=== PATIENT | female | born 1985 | race Caucasian/White ===

== ENCOUNTER 2017-05-15 11:01 | Emergency (ER) | payer BC ==
[2017-05-15 11:11] VITALS: BP 128/83; PULSE 82; TEMP 98.4; BMI 24.1
--- NOTE | 2017-05-15 11:21 | PDOC ---
History of Present Illness - General Chief Complaint: Sore Throat Stated Complaint: THROAT SORENESS WEAKNESS LOW TEMP LAST NIGHT Time Seen by Provider: 05/15/17 11:04 History Source: Patient Exam Limitations: No Limitations - History of Present Illness Initial Comments: 05/15/17 11:17 The patient is a 32-year-old female with a history of "chronic fatigue" who presents to the emergency department complaining of approximately 1 month of worsening fatigue. Her symptoms began 4 weeks ago, when she developed a severe sore throat, fever, chills, productive cough. She saw her primary care physician , was diagnosed with streptococcal pharyngitis, and treated with 10 days of amoxicillin. Her symptoms persisted despite the amoxicillin. She was then prescribed azithromycin "Z-Robinson" for 5 days. The sore throat, fever and cough resolved, but the fatigue has persisted. Yesterday, it was slightly worse, so she is seeking treatment. She denies family history of thyroid disorders. She does have 6 months of irregular periods. She denies diarrhea/hyperdense defecation, constipation. She denies hair loss. She denies any changes in the moisture levels of her skin. She denies menorrhagia, hematuria, hematemesis, melena/hematochezia. She denies tick exposure, rash. Past History - Past Medical History Allergies/Adverse Reactions: Allergies Allergy/AdvReac Type Severity Reaction Status Date / Time No Known Allergies Allergy Verified 05/15/17 11:03 Other medical history: DENIES - Psycho/Social/Smoking Cessation Hx Anxiety: No Suicidal Ideation: No Smoking History: Never smoked Information on smoking cessation initiated: No Hx Alcohol Use: No Drug/Substance Use Hx: No Substance Use Type: None Review of Systems - Review of Systems Comments:: 05/15/17 11:19 CONSTITUTIONAL: Present: see HPI Absent: diaphoresis HEENT: Present: See HPI Absent: difficulty swallowing, mouth swelling, ear pain, eye pain, visual changes CARDIOVASCULAR: Absent: chest pain, loss of consciousness, palpitations, irregular heart rate, peripheral edema RESPIRATORY: Absent: shortness of breath, dyspnea with exertion, orthopnea, wheezing, stridor , hemoptysis GASTROINTESTINAL: Absent: abdominal pain, abdominal distension, nausea, vomiting, diarrhea, constipation, melena, hematochezia GENITOURINARY: Absent: dysuria, frequency, urgency, hesitancy, hematuria, flank pain, genital pain MUSCULOSKELETAL: Absent: myalgia, arthralgia, joint swelling SKIN: Absent: rash, itching, pallor HEMATOLOGIC/IMMUNOLOGIC: Absent: easy bleeding, easy bruising, lymphadenopathy, frequent infections ENDOCRINE: Absent: unexplained weight gain, unexplained weight loss, heat intolerance, cold intolerance NEUROLOGIC: Absent: headache, focal weakness or paresthesias, dizziness, unsteady gait, seizure, mental status changes, bladder or bowel incontinence PSYCHIATRIC: Absent: anxiety, depression, suicidal or homicidal ideation, hallucinations. *Physical Exam - Vital Signs Last Vital Signs Temp Pulse Resp BP Pulse Ox 98.4 F 82 16 128/83 98 05/15/17 11:03 05/15/17 11:03 05/15/17 11:03 05/15/17 11:03 05/15/17 11:03 - Physical Exam Comments: 05/15/17 11:20 GENERAL: Well developed, well nourished. Awake and alert. No acute distress. HEENT: Normocephalic, atraumatic. PERRLA, EOMI. No conjunctival pallor. Sclera are non- icteric. Moist mucous membranes. Oropharynx is clear. NECK: Supple. Full ROM. No JVD. Carotid pulses 2+ and symmetric, without bruits. No thyromegaly. No lymphadenopathy. CARDIOVASCULAR: Regular rate and rhythm. No murmurs, rubs, or gallops. Distal pulses are 2+ and symmetric. PULMONARY: No evidence of respiratory distress. Lungs clear to auscultation bilaterally. No wheezing, rales or rhonchi. ABDOMINAL: Soft. Non-tender. Non-distended. No rebound or guarding. No organomegaly. Normoactive bowel sounds. MUSCULOSKELETAL Normal range of motion at all joints. No bony deformities or tenderness. No CVA tenderness. EXTREMITIES: No cyanosis. No clubbing. No edema. No calf tenderness. SKIN: Warm and dry. Normal capillary refill. No rashes. No jaundice. NEUROLOGICAL: Alert, awake, appropriate. Cranial nerves 2-12 intact. No deficits to light touch and temperature in face, upper extremities and lower extremities. No motor deficits in the in face, upper extremities and lower extremities. Normoreflexic in the upper and lower extremities. Normal speech. Toes are down- going bilaterally. Gait is normal without ataxia. PSYCHIATRIC: Cooperative. Good eye contact. Appropriate mood and affect. ED Treatment Course - LABORATORY CBC & Chemistry Diagram: 05/15/17 11:24 05/15/17 11:24 Medical Decision Making - Medical Decision Making 05/15/17 11:20 The patient is well-appearing and in no acute distress She has no significant physical examination findings Will obtain basic labs 05/15/17 11:56 CBC and chemistries noted Urinalysis noted The patient does not want to wait for results of the TSH and mono screen She will call us and approximately 2 hours for results Clinical impression: Chronic fatigue, with acute exacerbation There is no evidence of acute/emergent pathology She understands the need to continue seeing her primary care physician for further evaluation I discussed the physical exam findings, ancillary test results and final diagnoses with the patient. I answered all of the patient's questions. The patient was satisfied with the care received and felt comfortable with the discharge plan and treatment plan. The patient will call their primary care physician within 24 hours to arrange follow-up and will return to the Emergency Department with any new, persistent or worsening symptoms. *DC/Admit/Observation/Transfer Diagnosis at time of Disposition: Fatigue - Discharge Dispostion Disposition: HOME Condition at time of disposition: Stable - Patient Instructions Printed Discharge Instructions: DI for Fatigue Additional Instructions: Return to the emergency department immediately with ANY new, persistent or worsening symptoms. You MUST call and follow up with your doctor tomorrow. Please make sure your doctor reviews the results of your emergency department evaluation. - Post Discharge Activity Work/School Note: Back to Work
[2017-05-15 11:29] LABS: EOSINOPHIL 1.7 % (0-4.5); MCH 27.8 pg (25.7-33.7); MCHC 33.5 g/dl (32.0-36.0); MEAN CELL VOLUME 82.9 fl (80-96); MEAN PLT VOLUME 8.9 fl (7.5-11.1); NEUTROPHILS 63.3 % (42.8-82.8); PLATELET COUNT 288 K/MM3 (134-434); RDW 12.6 % (11.6-15.6); WHITE BLOOD COUNT 6.9 K/mm3 (4.0-10.8)
[2017-05-15 11:38] LABS: PH,URINE 6.5 (4.5-8); URINE APPEARANCE Clear; URINE BILIRUBIN Negative (NEGATIVE); URINE GLUCOSE (UA) Negative (NEGATIVE); URINE KETONE Negative (NEGATIVE); URINE LEUK ESTERASE Trace (NEGATIVE); URINE NITRITE Negative (NEGATIVE); URINE PROTEIN Negative (NEGATIVE); URINE UROBILINOGEN 0.2 E.U/dl (0.2-1.0)
[2017-05-15 11:39] LABS: URINE BLOOD 1+ (NEGATIVE); URINE COLOR AMBER
[2017-05-15 11:48] LABS: ALBUMIN 4.2 g/dl (3.5-5.0); ALK PHOS 62 U/L (32-92); ANION GAP 9 (8-16); CALCIUM 9.7 mg/dl (8.4-10.2); CO2 27 mmol/L (22-28); CREATININE 0.6 mg/dl (0.6-1.3); GLUCOSE,RANDOM 74 mg/dl (74-106); SGOT/AST 19 U/L (10-42); SGPT/ALT 19 U/L (10-40)
[2017-05-15 21:49] LABS: THYROID STIMULATING HORMONE 1.21 uIU/ml (0.358-3.74)
== END 2017-05-15 12:19 | disposition home or self-care (01) ==
LOC: FER 11:01
DX: R53.83 Other fatigue (principal); R53.82 Chronic fatigue, unspecified
CPT/HCPCS: 36415; 80053; 81003; 84443; 84703; 85025; 86308; 99282-25

== ENCOUNTER 2018-05-14 18:51 | Emergency (ER) | payer BC ==
[2018-05-14 19:04] VITALS: BP 119/69; PULSE 88; TEMP 99.5; BMI 24.7
--- NOTE | 2018-05-14 19:31 | PDOC ---
History of Present Illness - General History Source: Patient Exam Limitations: No Limitations - History of Present Illness Initial Comments: 05/14/18 19:47 The patient is a 33 year old female with no significant PMH who presents to the emergency department with an insect bite on her right thigh that was noticed by someone else at approximately 10:30AM today. The patient states she is here today as she was concerned it may be a tick bite. The patient denies any pain or warmth to the area. The patient states there is brush in her backyard but denies seeing any ticks physically on her. The patient denies any history of lyme or tick-borne diseases. The patient is approximately 5 weeks , and declines any prophylactic medications at this time. The patient denies fever, chills, or body aches. Allergies: NKA Past surgical history: None reported. Social history: No reported alcohol, drug, or cigarette use. <Lissy Patel - Last Filed: 05/14/18 21:31> <Meghna Valdez - Last Filed: 05/15/18 05:53> - General Chief Complaint: Redness To Affected Area Stated Complaint: INSECT BITE Time Seen by Provider: 05/14/18 19:07 Past History <Lissy Patel - Last Filed: 05/14/18 21:31> - Past Medical History COPD: No - Suicide/Smoking/Psychosocial Hx Smoking History: Never smoked Hx Alcohol Use: No Drug/Substance Use Hx: No Substance Use Type: None <Meghna Valdez - Last Filed: 05/15/18 05:53> - Past Medical History Allergies/Adverse Reactions: Allergies Allergy/AdvReac Type Severity Reaction Status Date / Time No Known Allergies Allergy Verified 05/14/18 18:59 Home Medications: Ambulatory Orders NK [No Known Home Medication] 05/14/18 Review of Systems - Review of Systems Able to Perform ROS?: Yes Comments:: 05/14/18 20:20 All systems are reviewed and negative except as noted in the HPI <Lissy Patel - Last Filed: 05/14/18 21:31> *Physical Exam - Vital Signs Last Vital Signs Temp Pulse Resp BP Pulse Ox 99.5 F 88 15 119/69 100 05/14/18 18:59 05/14/18 18:59 06/16/18 18:59 05/14/18 18:59 05/14/18 18:59 - Physical Exam Comments: 05/14/18 19:51 GENERAL: Awake, alert, and fully oriented, in no acute distress HEAD: No signs of trauma EYES: PERRLA, EOMI, sclera anicteric, conjunctiva clear ENT: Auricles normal inspection, hearing grossly normal, nares patent, oropharynx clear without exudates. Moist mucosa NECK: Normal ROM, supple, no lymphadenopathy, JVD, or masses LUNGS: Breath sounds equal, clear to auscultation bilaterally. No wheezes, and no crackles HEART: Regular rate and rhythm, normal S1 and S2, no murmurs, rubs or gallops ABDOMEN: Soft, nontender, normoactive bowel sounds. No guarding, no rebound. No masses EXTREMITIES: Normal range of motion, no edema. No clubbing or cyanosis. No cords, erythema, or tenderness NEUROLOGICAL: Cranial nerves II through XII grossly intact. Normal speech, normal gait SKIN: Warm, Dry, normal turgor. (+) 2cm non blanching erythematous, flat, oval, area on the mid posterior right thigh. Faintly erythematous punctate wound centrally. There is a 1 cm border blanched border surrounding the erythematous region. Area is nontender, non fluctuant, non edematous. no lymphphangitic streaking. No discharge noted. <Lissy Patel - Last Filed: 05/14/18 21:31> - Vital Signs Last Vital Signs Temp Pulse Resp BP Pulse Ox 99.5 F 88 15 119/69 100 05/14/18 18:59 05/14/18 18:59 05/14/18 18:59 05/14/18 18:59 05/14/18 18:59 <Meghna Valdez - Last Filed: 05/15/18 05:53> Progress Note - Progress Note Progress Note: Documentation has been prepared under my direction and personally reviewed by me in its entirety. I attest that this documented accurately reflects all work, treatment, procedures and medical decision making performed by me. <Meghna Valdez - Last Filed: 05/15/18 05:53> Medical Decision Making - Medical Decision Making As noted above, this 33-year-old woman (first trimester ) presents with a small erythematous area on the posterior right thigh. There is a punctate area in the central region of this indicating that is likely an insect bite. It is neither pruritic or painful. She presents in case it is suggestive of tick exposure/Lyme disease. Exam as noted. Although the patient has brush in her backyard in an area that has deer, appearance of the rash is not at all suggestive of the ECM. Furthermore, since the patient is , doxycycline is contraindicated. Patient has been advised to continue observance of the small lesion and to return or see her doctor if it becomes more extensive, erythematous or if she develops any fever/ myalgias, etc. <Meghna Valdez - Last Filed: 05/15/18 05:53> *DC/Admit/Observation/Transfer - Attestations Scribe Attestion: 05/14/18 19:54 Documentation prepared by Lissy Patel, acting as medical concierge for Meghna Valdez MD. <Lissy Patel - Last Filed: 05/14/18 21:31> <Meghna Valdez - Last Filed: 05/15/18 05:53> Diagnosis at time of Disposition: Insect bite (nonvenomous), right thigh, initial encounter - Discharge Dispostion Disposition: HOME Condition at time of disposition: Stable - Referrals Referrals: Thomas Land MD [Primary Care Provider] - - Patient Instructions Printed Discharge Instructions: DI for Insect Bites and Stings Additional Instructions: return or see Dr Land if you develop fever/chills, body aches return if rash expands or you have worsening pain/increased warmth in area - Post Discharge Activity
== END 2018-05-14 19:51 | disposition home or self-care (01) ==
LOC: FER 18:51
DX: O26.891 Other specified pregnancy related conditions, first trimester (principal); S71.151A Open bite, right thigh, initial encounter; W57.XXXA Bitten or stung by nonvenomous insect and other nonvenomous arthropods, initial encounter; Y93.89 Activity, other specified; Y92.9 Unspecified place or not applicable; Z3A.01 Less than 8 weeks gestation of pregnancy
CPT/HCPCS: 99281-25

== ENCOUNTER 2019-01-03 13:03 | Inpatient (IN) | payer BC ==
[2019-01-03] MEDS ORDERED: DEXTROSE 5%-LACTATED RINGERS 1,000 ML IV SCH (14:00)
[2019-01-03] MEDS ORDERED: TUBERCULIN PPD 5 TU/0.1ML SYRINGE (IN PATIENT USE ONLY) ID ONE (15:45)
[2019-01-03 15:48] VITALS: BMI 34.9
[2019-01-03] MEDS ORDERED: AMPICILLIN - 2 GM in SODIUM CHLORIDE 100 ML IVPB ONE (16:00)
[2019-01-03] MEDS ORDERED: AMPICILLIN SODIUM 2 GM VIAL ONE (16:19)
[2019-01-03 16:25] LABS: BASO % 0.4 % (0-2.0); EOS % 0.5 % (0-4.5); HEMATOCRIT 33.6 % (32.4-45.2); HEMOGLOBIN 11.3 GM/dL (10.7-15.3); LYMPH % 12.4 % (8-40); MCH 26.1 pg (25.7-33.7); MCHC 33.5 g/dl (32.0-36.0); MEAN PLT VOLUME 9.6 fl (7.5-11.1); MONO % 8.3 % (3.8-10.2); NEUT % 78.4 % (42.8-82.8); PLATELET COUNT 186 K/MM3 (134-434); RBC 4.31 M/mm3 (3.60-5.2); RDW 17.8 % (11.6-15.6); WHITE BLOOD COUNT 11.7 K/mm3 (4.0-10.0)
[2019-01-03 16:37] LABS: INR 0.94 (0.83-1.09); PROTHROMBIN TIME (PATIENT) 11.1 SEC (9.7-13.0)
[2019-01-03 16:40] LABS: ACTIVATED PTT 26.2 SECONDS (25.2-36.5)
[2019-01-03 16:47] LABS: ANION GAP 11 MMOL/L (8-16); BLOOD UREA NITROGEN 8 mg/dL (7-18); CALCIUM 8.5 mg/dL (8.5-10.1); CHLORIDE 105 mmol/L (98-107); CO2 24 mmol/L (21-32); CREATININE 0.6 mg/dL (0.55-1.3); GLUCOSE,RANDOM 110 mg/dL (74-106); POTASSIUM 4.2 mmol/L (3.5-5.1); SODIUM 139 mmol/L (136-145)
[2019-01-03] MEDS ORDERED: PROMETHAZINE HCL 25 MG/1 ML VIAL IVPUSH ONE (19:28)
[2019-01-03] MEDS ORDERED: BUTORPHANOL TARTRATE 1 MG/ML VIAL IVPB ONE (19:28)
[2019-01-03] MEDS ORDERED: ELECTROLYTE-148 SOLN 1,000 ML IV SCH (19:30)
[2019-01-03] MEDS ORDERED: PROMETHAZINE HCL 25 MG/1 ML VIAL ONE (19:39)
[2019-01-03] MEDS ORDERED: BUTORPHANOL TARTRATE 1 MG/ML VIAL ONE ×2 (19:39)
--- NOTE | 2019-01-03 19:42 | HP ---
Past Medical History - Primary Care Physician PCP:: Chevy Delarosa - Admission Chief Complaint: 33yo P0 with at EGA 38w3d in spontaneous labor and mild preeclampsia. History of Present Illness: Pt was seen in office earlier today and noted to have elevated BP. She was referred to L&D for evaluation and was diagnosed with mild preeclampsia. However , the pt was also noted to be in spontaneous latent labor. complicated by: Current mild preeclampsia (+) Down Syndrome screen Elevated GCT with negative GTT Excessive maternal weight gain Vag GBS (+) History Source: Patient, Medical Record Limitations to Obtaining History: No Limitations - Past Medical History DOPE MIXER: No: Alzheimer's, CVA, Dementia, Migraine, Multiple Sclerosis, Peripheral Neuropathy, Parkinson's, Seizure, Syncope, TIA, Vertigo, Other Cardiovascular: No: AFIB, Aneurysm, Aortic Insufficiency, Aortic Stenosis, CAD, CHF, Deep Vein Thrombosis, HTN, Hyperlipdemia, AK, Mitral Insufficiency, Mitral Stenosis, Murmur, Pulmonary Hypertension, Other Pulmonary: No: Asthma, Bronchitis, Cancer, COPD, O2 Dependent, Pneumonia, Previously Intubated, Pulmonary Embolus, Pulmonary Fibrosis, Sleep Apnea, Other Gastrointestinal: No: Ascites, Cancer, Constipation, Crohn's Disease, Diverticulitis, Diverticulosis, Esophageal Varices, Gastritis, GERD, GI Bleed, Hemorrhoids, Hiatal Hernia, Inflamatory Bowel Disease, Irritable Bowel Disease, Pancreatitis, Peptic Ulcer Disease, Ulcerative Colitis, Other Hepatobiliary: No: Cirrhosis, Cholelithiasis, Cholecystitis, Choledocholithiasis , Hepatitis A, Hepatitis B, Hepatitis C, Other Renal/: No: Renal Failure, Renal Inusuff, BPH, Cancer, Hematuria, Hemodialysis , Neurogenic Bladder, Renal Calculi, UTI, Other ...: 2 ...Para: 0 ...Term: 0 ...: 0 ...Spon : 1 ...Induced : 0 ...Multiple Gestation: 0 ...LMP: 03/29/18 ... Weeks Gestation by Dates: 40.0 ...EDC by Dates: 01/03/19 ...EDC by Sono: 01/14/19 Heme/Onc: No: Anemia, B12 Deficiency, Bleeding Disorder, Cancer, Current Chemotherapy, Current Radiation Therapy, Hemochromatosis, Hypercoaguable State, Myeloproliferative Synd, Sickle Cell Disease, Sickle Cell Trait, Thrombocytopenia, Other Infectious Disease: No: AIDS, C-Diff, Herpes Zoster, HIV, MRSA, STD's, Tuberculosis, VREF, Other Psych: No: Addictions, Anxiety, Bipolar, Depression, Panic, Psychosis, Schizophrenia, Other Musculoskeletal: No: Bursitis, Chronic low back pain, Hemiparesis, Hemiplegia, Osteoarthritis, Paraplegia, Other Rheumatology: No: Fibromyalgia, Gout, Lupus, Rheumatoid Arthritis, Sarcoidosis, Vasculitis, Other ENT: No: Allergic Rhinitis, Sinusitis, Other Endocrine: No: Richmond's Disease, Tiff's Disease, Diabetes Insipidus, Diabetes Mellitus, Hyperparathyroidism, Hyperthyroidism, Hypothyroidism, Osteopenia, SIADH, Other Dermatology: No: Basal Cell, Cellulitis, Eczema, Melanoma, Psoriasis, Squamous Cell, Other - Past Surgical History Past Surgical History: Yes: None Hx Myomectomy: No Hx Transabdominal Cerclage: No Additional Surgical History: LASIK - Smoking History Smoking history: Never smoked Have you smoked in the past 12 months: No - Alcohol/Substance Use Hx Alcohol Use: No History of Substance Use: reports: None - Social History Usual Living Arrangement: Yes: With Spouse ADL: Independent Occupation: Teacher History of Recent Travel: No Home Medications - Allergies Allergies/Adverse Reactions: Allergies Allergy/AdvReac Type Severity Reaction Status Date / Time No Known Allergies Allergy Verified 01/03/19 13:45 - Home Medications Home Medications: Ambulatory Orders Pnv 112/Iron/Folic/Om3/Dha/Epa [Vitafol Gummies] 1 each PO DAILY 11/15/18 Family Disease History - Family Disease History Family Disease History: Heart Disease: Father (melanoma, CAD), CA: Father Review of Systems - Review of Systems Constitutional: reports: Other (Spontaneous painful contractions q2-4min) Eyes: reports: No Symptoms HENT: reports: No Symptoms Neck: reports: No Symptoms Cardiovascular: reports: No Symptoms Respiratory: reports: No Symptoms Gastrointestinal: reports: No Symptoms Genitourinary: reports: No Symptoms Breasts: reports: No Symptoms Reported Musculoskeletal: reports: No Symptoms Integumentary: reports: No Symptoms Neurological: reports: No Symptoms Endocrine: reports: No Symptoms Hematology/Lymphatic: reports: No Symptoms Psychiatric: reports: No Symptoms Pain Intensity: 7 Physical Exam - Maternity Vital Signs: Vital Signs Temperature 98.6 F 01/03/19 18:00 Pulse Rate 95 H 02/05/19 18:00 Respiratory Rate 18 01/03/19 18:00 Blood Pressure 144/91 01/03/19 18:00 O2 Sat by Pulse Oximetry (%) Constitutional: Yes: Well Nourished, No Distress, Calm Eyes: Yes: WNL, Conjunctiva Clear HENT: Yes: WNL, Atraumatic, Normocephalic Neck: Yes: WNL, Supple, Trachea Midline Cardiovascular: Yes: WNL, Regular Rate and Rhythm Lungs: Clear to auscultation, Normal air movement Breast(s): Yes: WNL - Abdominal Exam/OB Fundal Height: 39 Number of Fetuses: Single Presentation: Vertex Contractions: Yes Regularity: Irregular Intensity: Moderate Monitor Mode: External Heart Rate (range): 140 Heart Rate Location: Midline Category: I Accelerations: Non-Uniform Decelerations: None - Vaginal Exam/OB Vaginal Bleediing: No Speculum Exam: No Dilatation (cm): 2 Effacement (%): 80 Amniotic Membrane Status: Intact Presentation: Vertex/Position Station: -3 (Adequate gynecoid pelvimetry, EFW ~3700g by Ronen's maneuvers) - Physical Exam Musculoskeletal: Yes: WNL - Labs Lab Results: CBC, BMP 01/03/19 16:15 01/03/19 16:15 Hemorrhage Risk Assessment - Risk Factors Medium Risk Factors: Yes: None High Risk Factors: Yes: None Risk Score: 1 Risk Level: Medium Risk Imaging - Results Ultrasound: Report Reviewed Assessment/Plan 33yo P0 with at EGA 38w3d in spontaneous labor and mild preeclampsia. 1. Labor- spontaneous latent labor. Plan to monitor at this point and allow for labor to progress. 2. Fetus- Catgory I tracing. No intervention is required. 3. Preeclampsia- mild preeclampsia with BP 140's/90's. The pt is asymptomatic for any s/sx's of PEC. Plan to hold off on giving Mg Sulphate at this time. 4. Pain- Tx options d/w pt and she prefers to have IV sedation at this time. 5. Delivery- anticipate . We discussed the risks of shoulder dystocia, bleeding 6. Baby- with possible Down syndrome. The anatomy and cardiac echo were normal. I discussed this with Neonatology.
[2019-01-03] MEDS: AMPICILLIN - 1 GM in SODIUM CHLORIDE 100 ML IVPB SCH (20:00)
[2019-01-03] MEDS ORDERED: AMPICILLIN SODIUM 1 GM VIAL ONE (20:25)
[2019-01-03] MEDS ORDERED: FENTANYL/BUPIVACAINE/NS/PF - PCEA - 50 ML DISP.SYRIN EP ONE (23:21)
[2019-01-03] MEDS ORDERED: BUPIVACAINE HCL/PF 0.25% (2.5MG/ML) 10 ML VIAL ONE (23:23)
[2019-01-03] MEDS ORDERED: LIDO 2%/EPI 1:200000 PRESRVFRE (20 ML SDVIAL) ONE (23:23)
[2019-01-03] MEDS ORDERED: FENTANYL/BUPIVACAINE/NS/PF - PCEA - 50 ML DISP.SYRIN EP SCH (23:45)
[2019-01-03] MEDS ORDERED: NALOXONE HCL 0.4 MG/ML VIAL IVPUSH PRN (23:47)
[2019-01-04] MEDS: AMPICILLIN - 1 GM in SODIUM CHLORIDE 100 ML IVPB SCH ×5 (00:15→16:00)
[2019-01-04] MEDS ORDERED: AMPICILLIN SODIUM 1 GM VIAL ONE ×5 (00:17→15:58)
[2019-01-04] MEDS ORDERED: FENTANYL/BUPIVACAINE/NS/PF - PCEA - 50 ML DISP.SYRIN EP ONE ×4 (03:27→15:58)
--- NOTE | 2019-01-04 08:43 | PN ---
Ante-Partal Exam - Subjective Subjective: No complaints. Vital Signs: Vital Signs Temperature 97.4 F L 01/04/19 07:00 Pulse Rate 117 H 01/04/19 08:00 Respiratory Rate 18 01/04/19 08:00 Blood Pressure 146/92 01/04/19 08:00 O2 Sat by Pulse Oximetry (%) 97 01/04/19 08:00 Bleeding: No Headache: No Visual changes: No Right upper quadrant pain: No Pain (scale 1-10): 0 - Contractions Contractions: Yes Regularity: Regular (q2-3min) Intensity: Mod/Strong Monitor Mode: External - Exam during Labor Heart Rate: 140 Variability: Moderate Heart Rate Location: Midline Category: I Monitor Accelerations: Present Monitor Decelerations: None Exam: Vaginal Dilatation (cm): 9 Effacement (%): 100 Amniotic Membrane Status: Ruptured (AROM) Amniotic Fluid: Clear Presentation: Vertex Station: -2 Remarks: Adequate pelvimetry - Intrapartum Hemorrhage Risk Medium Risk Factors: None High Risk Factors: None Risk Score: 0 Risk Level: Low Risk - Assessment/Plan Assessment/Plan: 33yo P0 with at EGA 38w4d in spontaneous labor. 1. Labor progressing in active phase of labor 2. Fetus with Category I tracing and does not require intervention 3. Preeclampsia- BP in 140's/90's range c/w mild PEC. Pt is asymptomatic. Plan to hold off on Mg Sulphate at this time. 4. Pain is well controlled with epidural 5. GBS prphylaxis. 6. Fetus with likely Down Syndrome- d/w neonatology
[2019-01-04] MEDS ORDERED: BUPIVACAINE HCL/PF 0.25% (2.5MG/ML) 10 ML VIAL ONE ×3 (09:46→18:15)
--- NOTE | 2019-01-04 12:09 | PN ---
Ante-Partal Exam - Subjective Subjective: Patient reports increased pressure Vital Signs: Vital Signs Temperature 99.4 F 01/04/19 11:00 Pulse Rate 122 H 01/04/19 10:45 Respiratory Rate 18 01/04/19 11:00 Blood Pressure 152/111 H 01/04/19 11:00 O2 Sat by Pulse Oximetry (%) 98 01/04/19 11:00 Bleeding: No Headache: No Visual changes: No Right upper quadrant pain: No - Contractions Contractions: Yes Regularity: Regular Intensity: Mod/Strong Monitor Mode: External - Exam during Labor Heart Rate: 130 Variability: Moderate Category: I Monitor Accelerations: Absent Monitor Decelerations: None Exam: Vaginal Dilatation (cm): 9.5 Effacement (%): 100 Presentation: Vertex Station: +1 - Intrapartum Hemorrhage Risk Medium Risk Factors: None High Risk Factors: None Risk Score: 0 Risk Level: Low Risk - Assessment/Plan Assessment/Plan: 33 yo active labor 1. will await descent of head 2. moderate pain control with epidural 3. GBS neg 4. Will proceed with expectant management
[2019-01-04] MEDS ORDERED: OXYTOCIN 20 UNITS in 0.9% NS 20 UNIT/1,000 ML INFUS.BAG IV ONE (12:39)
[2019-01-04] MEDS ORDERED: LIDOCAINE HCL 1% PRESERVATIVE FREE - 30ML VIAL ONE (12:39)
[2019-01-04] MEDS ORDERED: OXYTOCIN 30 UNITS in 0.9% NS 30 UNIT/500 ML INFUS.BAG IVPB ONE (16:13)
[2019-01-04] MEDS ORDERED: OXYTOCIN 30 UNITS in 0.9% NS 30 UNIT/500 ML INFUS.BAG IVPB SCH (16:15)
--- NOTE | 2019-01-04 16:21 | PN ---
Ante-Partal Exam - Subjective Subjective: Pt has been pushing from 12:20pm to 2pm, then she rested until 3pm. She has been pushing from 3pm to now. The vtx has a small amount of caput and is at +1 station. The pt was offered a C/section but refused. We discussed the risks of operative delivery and shoulder dystocia vs risks of surgery. The pt refused a C/S and wants to push for another hour. The ctx's are now irregular and last <30sec. The pt requested pitocin. We discussed the risks and benefits of pitocin, uterine atony, uterine rupture. The pt refused a C/S again. Vital Signs: Vital Signs Temperature 98.8 F 01/04/19 15:00 Pulse Rate 123 H 01/04/19 12:00 Respiratory Rate 20 01/04/19 13:15 Blood Pressure 153/95 01/04/19 11:45 O2 Sat by Pulse Oximetry (%) 97 01/04/19 13:00 Bleeding: No Headache: No Visual changes: No Right upper quadrant pain: No Pain (scale 1-10): 8 - Contractions Contractions: Yes Regularity: Irregular Intensity: Mild Monitor Mode: External - Exam during Labor Heart Rate: 140 Variability: Moderate Heart Rate Location: Midline Category: I Monitor Accelerations: Present Monitor Decelerations: Early Exam: Vaginal Dilatation (cm): 10 Effacement (%): 100 Amniotic Membrane Status: Leaking Presentation: Vertex Station: +1 - Intrapartum Hemorrhage Risk Medium Risk Factors: Prolonged Second Stage High Risk Factors: None Risk Score: 1 Risk Level: Medium Risk - Assessment/Plan Assessment/Plan: pt with spont labor, progressed to second stage. She has a prolonged second stage with epidural in place. I explained the risks of continued pushing, uterine atony, shoulder dystocia, injury, etc. The pt plans to push until 5pm.
[2019-01-04] MEDS ORDERED: CITRIC ACID/SODIUM CITRATE 30 ML UNIT-DOSE CUP PO ONE (16:44)
[2019-01-04] MEDS ORDERED: ceFAZolin SODIUM 1 GM VIAL ONE (17:22)
[2019-01-04] MEDS ORDERED: OXYTOCIN 10 UNITS/ML VIAL ONE ×2 (17:45→18:43)
[2019-01-04 18:21] LABS: ARTERIAL BLOOD GAS BASE EXCESS -1.5 meq/l (-2-2); ARTERIAL BLOOD GAS PCO2 49.4 mmHg (35-45); ARTERIAL BLOOD GAS pH 7.32 (7.35-7.45)
[2019-01-04 18:25] LABS: ARTERIAL BLD GAS O2 SATURATION 22.1 % (90-98.9); ARTERIAL BLOOD GAS PO2 15.9 mmHg (80-100)
[2019-01-04 18:26] LABS: VENOUS PH 7.36 (7.32-7.42); VENOUS PO2 25.7 mmHg (28-48)
[2019-01-04] MEDS ORDERED: KETAMINE HCL 500 MG/10 ML VIAL ONE (18:31)
[2019-01-04] MEDS ORDERED: MIDAZOLAM HCL 2 MG/2 ML SINGLE DOSE VIAL ONE (18:31)
[2019-01-04] MEDS ORDERED: IBUPROFEN 600 MG TABLET (FP) PO PRN (18:50)
[2019-01-04] MEDS ORDERED: oxyCODONE HCL 5 MG TABLET PO PRN ×2 (18:50)
[2019-01-04] MEDS ORDERED: METHYLERGONOVINE MALEATE 0.2 MG/1 ML AMP IM PRN (18:50)
[2019-01-04] MEDS ORDERED: METOPROLOL TARTRATE 5 MG/5 ML VIAL ONE (18:54)
[2019-01-04] MEDS ORDERED: OXYTOCIN 20 UNITS in 0.9% NS 20 UNIT/1,000 ML INFUS.BAG IV SCH (19:00)
[2019-01-04] MEDS ORDERED: ONDANSETRON 4 MG/2 ML VIAL IVPUSH PRN (19:16)
--- NOTE | 2019-01-04 19:20 | OP ---
Operative Note - Note: Operative Date: 01/04/19 Pre-Operative Diagnosis: at EGA 38w4d. Mild preeclampsia. Arrest of descent Operation: Primary LT C/S Findings: 1. Live baby girl in vtx presentation with deep arrest of descent in OP presentation 2. No meconium 3. Normal uterus, ovaries and tubes 4. No evidence of bicornuate uterus Post-Operative Diagnosis: Same as Pre-op Surgeon: Chevy Delarosa Water Main Inspector: Santa Lopez (\) Anesthesiologist/BICYCLE REPAIRMAN: Denisha Herzog Anesthesia: Epidural Specimens Removed: Placenta Estimated Blood Loss (mls): 1,000 Drains & Tubes with Location: Lozano cath Drains, Volume Out (mls): 175 Blood Volume Replaced (mls): 0 Fluid Volume Replaced (mls): 2,000 Operative Report Dictated: Yes
--- NOTE | 2019-01-04 21:14 | OP ---
DATE OF OPERATION: 01/04/2019 PREOPERATIVE DIAGNOSES: , estimated gestational age of 38 weeks 4 days, mild preeclampsia, arrest of descent. POSTOPERATIVE DIAGNOSES: , estimated gestational age of 38 weeks 4 days, mild preeclampsia, arrest of descent. PROCEDURE: Primary low-transverse section via Pfannenstiel skin incision. SURGEON: Chevy Delarosa MD ASSISTANT GOLF COURSE SUPERINTENDENT: Santa Lopez MD ANESTHESIOLOGIST: Denisha Herzog MD ANESTHESIA: Epidural. COMPLICATIONS: None. IV FLUIDS: 2000 mL. URINE OUTPUT: 175 mL. ESTIMATED BLOOD LOSS: 1000 mL. COMPLICATIONS: None. PATHOLOGY: Placenta. FINDINGS: Live baby girl in vertex presentation with deep pelvic arrest of descent, on occiput posterior presentation. Normal uterus, ovaries, and fallopian tubes. No evidence of bicornuate uterus was noted. There were large varicosities noted around both ovaries and in the broad ligament bilaterally. No meconium was noted in the amniotic fluid. Baby's Apgars were 9 and 9. PROCEDURE: The patient was met preoperatively. Risks, benefits, and alternatives of surgery were discussed in detail. All questions were answered. The patient was then brought to the OR. She was placed on a surgical table in the supine position with a leftward tilt. The epidural anesthesia was bolused and the level was found to be adequate. The patient was then prepped and draped in the usual sterile fashion. A Lozano catheter was left to drain to gravity. A timeout procedure was conducted as per standard protocol. A Pfannenstiel skin incision was made with the knife approximately 2 cm above the pubic symphysis. The incision was carried down to the level of fascia. The fascia was incised in the midline. The incision was extended bilaterally with De Los Santos scissors. The fascia was dissected away from the rectus muscles superiorly and inferiorly. The rectus muscles were in the midline using blunt dissection. The peritoneum was identified and entered sharply. The peritoneal incision was then extended superiorly and inferiorly using Metzenbaum scissors. The bladder peritoneum was then dissected away from the lower uterine segment. The bladder was reflected downwards with a Madelia retractor. The uterus was incised in the lower uterine transversely. The incision was extended bilaterally using bandage scissors. The baby was found to be very deep in the pelvis and in occiput posterior presentation. There was no meconium in the amniotic fluid. The baby was delivered from vertex presentation without complications. The baby's nose and mouth were suctioned and the baby was crying spontaneously. The umbilical cord was clamped and cut. The baby was handed to the awaiting director of audiology. The placenta was then removed manually and without complications. The placenta was sent to Pathology. A segment of the umbilical cord was then sent for umbilical cord gas. A lower uterine segment laceration was noted to be on the patient's right side. The uterus was then exteriorized. The lower uterine segment was identified and traced to the apex. There were multiple very large varicose veins noted bilaterally along the broad ligament and extending all the way up to both ovaries. The varicose veins were also surrounding both ovaries and were very engorged. While maintaining traction and good visualization, the lower uterine segment was repaired using a 2-0 Biosyn suture with running locking stitch. Good hemostasis was achieved. Following that, the uterine incision was repaired using a 0 Biosyn suture with a running locking stitch. Good hemostasis was noted. Afterwards, the uterine incision was imbricated using a 0 Biosyn suture with a running stitch. Good hemostasis was noted. The bladder peritoneum was then reapproximated using a 2-0 chromic suture. Once again, good hemostasis was confirmed. The operative field was irrigated using copious amounts of normal saline. Once the saline was aspirated, good hemostasis was noted. The abdominal peritoneum was then closed using a 2-0 chromic suture. The rectus muscles were approximated using several interrupted 2-0 chromic sutures. The fascia was closed using a 0 Vicryl suture with a running stitch. Good hemostasis and approximation were noted. The subcutaneous adipose tissues and Joaquin's fascia were approximated using several interrupted 2-0 chromic sutures. The skin was closed using a 3-0 Vicryl suture with a subcutaneous stitch. Sponge, lap, and instrument counts were correct. The patient was then transferred to recovery room awake and in stable condition. Geovani [id number]
[2019-01-04] MEDS: FERROUS SO4 325 MG TABLET (FP) PO SCH (22:27)
[2019-01-04] MEDS: IBUPROFEN 800 MG/8 ML IJ IVPB PRN (23:11)
[2019-01-05] MEDS: CEFAZOLIN 2 GM/D5W 2 GM/50 ML ML IVPB SCH ×3 (01:42→17:28)
[2019-01-05] MEDS ORDERED: ceFAZolin 2 GRAM PREMIX BAG IVPB SCH (02:00)
--- NOTE | 2019-01-05 06:26 | PN ---
Post Progress Note - Subjective Subjective: Patient without acute complaints. Tolerating clears, without nausea or vomiting No voiding, spaulding in place draining clear fluid No ambulation or flatus yet. Denies fevers or chills. Pain well controlled. Post Day: 1 Type of Delivery: Primary C/S Vital Signs: Vital Signs Temperature 98.6 F 01/05/19 02:00 Pulse Rate 115 H 01/05/19 02:00 Respiratory Rate 20 01/05/19 05:00 Blood Pressure 114/67 01/05/19 02:00 O2 Sat by Pulse Oximetry (%) 99 01/04/19 20:30 Uterus: Yes: Fundus Firm, Fundus below umbilicus Incision: Yes: Dressing dry and intact Abdomen/GI: Yes: Abdomen soft, Tender. No: Passing flatus, Tolerating PO Lochia: Yes: Serosa Lochia, amount: Moderate Extremities: Yes: Calves non-tender, Edema (+1 ) Activity: Ambulating - Labs Labs: CBC WBC 11.7 K/mm3 (4.0-10.0) H 01/03/19 16:15 RBC 4.31 M/mm3 (3.60-5.2) 01/03/19 16:15 Hgb 11.3 GM/dL (10.7-15.3) 01/03/19 16:15 Hct 33.6 % (32.4-45.2) 01/03/19 16:15 MCV 78.0 fl (80-96) L 01/03/19 16:15 MCH 26.1 pg (25.7-33.7) 01/03/19 16:15 MCHC 33.5 g/dl (32.0-36.0) 01/03/19 16:15 RDW 17.8 % (11.6-15.6) H 01/03/19 16:15 Plt Count 186 K/MM3 (134-434) 01/03/19 16:15 MPV 9.6 fl (7.5-11.1) 01/03/19 16:15 Absolute Neuts (auto) 9.1 K/mm3 (1.5-8.0) H 01/03/19 16:15 Neutrophils % 78.4 % (42.8-82.8) 01/03/19 16:15 Lymphocytes % 12.4 % (8-40) 01/03/19 16:15 Monocytes % 8.3 % (3.8-10.2) 01/03/19 16:15 Eosinophils % 0.5 % (0-4.5) 01/03/19 16:15 Basophils % 0.4 % (0-2.0) 01/03/19 16:15 Nucleated RBC % 0 % (0-0) 01/03/19 16:15 Assessment/Plan 33 yo POD # 1 s/p 1 CD, afebrile, vital signs stable, doing well 1. Continue routine postoperative care. 2. Follow up AM CBC 3. Rh positive status, no rhogam indicated. 4. Encourage ambulation and incentive spirometer use 5. Continue oral pain medication 6. Will DC jasson later today and await void 7. Anticipate discharge home postoperative day #3 or #4
[2019-01-05 09:13] LABS: BASO % 0.1 % (0-2.0); EOS % 0.1 % (0-4.5); HEMATOCRIT 27.8 % (32.4-45.2); HEMOGLOBIN 9.2 GM/dL (10.7-15.3); LYMPH % 6.7 % (8-40); MCH 25.8 pg (25.7-33.7); MCHC 33.2 g/dl (32.0-36.0); MEAN CELL VOLUME 77.6 fl (80-96); MONO % 4.4 % (3.8-10.2); NEUT % 88.7 % (42.8-82.8); PLATELET COUNT 178 K/MM3 (134-434); RBC 3.58 M/mm3 (3.60-5.2); RDW 17.7 % (11.6-15.6); WHITE BLOOD COUNT 19.7 K/mm3 (4.0-10.0)
[2019-01-05] MEDS: PRENATAL VITAMINS W/ FOLIC ACID TABLET (FP) PO SCH (09:34)
[2019-01-05] MEDS: FERROUS SO4 325 MG TABLET (FP) PO SCH ×2 (09:34→22:15)
[2019-01-05] MEDS: ENOXAPARIN NA (PORCINE) 40 MG/0.4 ML DISP.SYRIN SQ SCH (10:14)
[2019-01-05] MEDS: IBUPROFEN 800 MG/8 ML IJ IVPB PRN (10:54)
--- NOTE | 2019-01-05 13:25 | PN ---
Progress Note (short form) - Note Progress Note: POD #1 - s/p under spinal anesthesia with duramorph. VSS. Pt. doing well. No complaints. Good pain control. No apparent anesthetic complications noted. Continue current care.
[2019-01-05] MEDS ORDERED: BISACODYL 10 MG SUPP.RECT RC PRN (18:50)
[2019-01-05] MEDS: ACETAMINOPHEN 650 MG/20.3 ML ORAL SOLUTION (CUPS) PO PRN (22:01)
[2019-01-05] MEDS: IBUPROFEN 100 MG/5 ML UNIT DOSE CUPS PO PRN (22:02)
[2019-01-06] MEDS: SIMETHICONE 80 MG TAB.CHEW (FP) PO PRN ×3 (02:27→16:06)
[2019-01-06] MEDS: ACETAMINOPHEN 650 MG/20.3 ML ORAL SOLUTION (CUPS) PO PRN ×2 (02:28→16:04)
[2019-01-06] MEDS: IBUPROFEN 100 MG/5 ML UNIT DOSE CUPS PO PRN ×3 (02:28→17:49)
--- NOTE | 2019-01-06 06:52 | PN ---
Progress Note (short form) - Note Progress Note: pod 2 doing well, no c/o CBC, BMP 01/05/19 08:00 01/03/19 16:15 Last Vital Signs Temp Pulse Resp BP Pulse Ox 98.0 F 96 H 18 119/76 98 01/06/19 02:00 01/06/19 02:00 01/06/19 02:00 01/06/19 02:00 01/05/19 06:52 abdomen soft, no distension, no cva incision dry, clean no calf tenderness lochia mild plan ambulate, cbc in am
[2019-01-06] MEDS ORDERED: DIPHTH,PERTUSS(ACELL),TET 0.5 ML DISP.SYRIN IM ONE (10:00)
[2019-01-06] MEDS: ENOXAPARIN NA (PORCINE) 40 MG/0.4 ML DISP.SYRIN SQ SCH (10:08)
[2019-01-06] MEDS: FERROUS SO4 325 MG TABLET (FP) PO SCH ×2 (10:09→21:09)
[2019-01-06] MEDS: ACETAMINOPHEN 325 MG TABLET (FP) PO PRN (10:09)
[2019-01-06] MEDS: PRENATAL VITAMINS W/ FOLIC ACID TABLET (FP) PO SCH (10:42)
--- NOTE | 2019-01-07 01:44 | PN ---
Post Progress Note - Subjective Subjective: Patient without acute complaints. Reports tolerating oral intake without nausea or vomiting. Ambulating without dizziness. Denies fevers or chills. Pain well controlled with oral pain medication. No , but pumping colostrum Passing flatus. Post Day: 3 Type of Delivery: Primary C/S Vital Signs: Vital Signs Temperature 98.5 F 01/06/19 21:57 Pulse Rate 87 01/06/19 21:57 Respiratory Rate 18 01/06/19 21:57 Blood Pressure 123/81 01/06/19 21:57 O2 Sat by Pulse Oximetry (%) 98 01/05/19 06:52 Breast Exam: Yes: Soft Uterus: Yes: Fundus Firm, Fundus below umbilicus Incision: Yes: Sutures intact. No: Redness, Oozing Abdomen/GI: Yes: Abdomen soft, Tender (mild incisional), Passing flatus, Tolerating PO. No: Abdominal Distention Lochia: Yes: Serosa Lochia, amount: Small Extremities: Yes: Calves non-tender, Edema (+1) Activity: Ambulating - Labs Labs: CBC WBC 19.7 K/mm3 (4.0-10.0) H 01/05/19 08:00 RBC 3.58 M/mm3 (3.60-5.2) L 01/05/19 08:00 Hgb 9.2 GM/dL (10.7-15.3) L 01/05/19 08:00 Hct 27.8 % (32.4-45.2) L D 01/05/19 08:00 MCV 77.6 fl (80-96) L 01/05/19 08:00 MCH 25.8 pg (25.7-33.7) 01/05/19 08:00 MCHC 33.2 g/dl (32.0-36.0) 01/05/19 08:00 RDW 17.7 % (11.6-15.6) H 01/05/19 08:00 Plt Count 178 K/MM3 (134-434) 01/05/19 08:00 MPV 9.0 fl (7.5-11.1) 01/05/19 08:00 Absolute Neuts (auto) 17.4 K/mm3 (1.5-8.0) H 01/05/19 08:00 Neutrophils % 88.7 % (42.8-82.8) H 01/05/19 08:00 Lymphocytes % 6.7 % (8-40) L D 01/05/19 08:00 Monocytes % 4.4 % (3.8-10.2) 01/05/19 08:00 Eosinophils % 0.1 % (0-4.5) 01/05/19 08:00 Basophils % 0.1 % (0-2.0) 01/05/19 08:00 Nucleated RBC % 0 % (0-0) 01/05/19 08:00 Assessment/Plan 33 yo POD # 3 s/p 1 CD, afebrile, vital signs stable, doing well 1. Continue routine postoperative care. 2. Encourage ambulation and incentive spirometer use 3. Continue oral pain medication 4. Anticipate discharge home postoperative day #4
[2019-01-07] MEDS: ACETAMINOPHEN 650 MG/20.3 ML ORAL SOLUTION (CUPS) PO PRN ×3 (02:09→22:35)
[2019-01-07] MEDS: IBUPROFEN 100 MG/5 ML UNIT DOSE CUPS PO PRN ×4 (02:10→22:40)
[2019-01-07] MEDS: SIMETHICONE 80 MG TAB.CHEW (FP) PO PRN ×2 (08:45→17:16)
[2019-01-07] MEDS: ACETAMINOPHEN 325 MG TABLET (FP) PO PRN (08:48)
[2019-01-07 08:58] LABS: BASO % 0.2 % (0-2.0); EOS % 2.7 % (0-4.5); HEMATOCRIT 26.3 % (32.4-45.2); HEMOGLOBIN 8.7 GM/dL (10.7-15.3); MCH 25.5 pg (25.7-33.7); MCHC 32.9 g/dl (32.0-36.0); MEAN CELL VOLUME 77.4 fl (80-96); MEAN PLT VOLUME 8.6 fl (7.5-11.1); MONO % 4.6 % (3.8-10.2); NEUT % 79.5 % (42.8-82.8); PLATELET COUNT 222 K/MM3 (134-434); RDW 18.3 % (11.6-15.6); WHITE BLOOD COUNT 13.6 K/mm3 (4.0-10.0)
[2019-01-07] MEDS: FERROUS SO4 325 MG TABLET (FP) PO SCH ×2 (10:29→21:22)
[2019-01-07] MEDS: ENOXAPARIN NA (PORCINE) 40 MG/0.4 ML DISP.SYRIN SQ SCH (10:29)
[2019-01-07] MEDS: PRENATAL VITAMINS W/ FOLIC ACID TABLET (FP) PO SCH (10:29)
[2019-01-07] MEDS ORDERED: SENNOSIDES/DOCUSATE COMBO (SENNA PLUS) TABLET (UD) PO PRN (22:00)
--- NOTE | 2019-01-07 22:26 | DS ---
Physical Exam-PECAN CLEANER Vital Signs: Vital Signs Temperature 98.5 F 01/07/19 10:00 Pulse Rate 87 01/07/19 10:00 Respiratory Rate 20 01/07/19 10:00 Blood Pressure 131/84 01/07/19 10:00 O2 Sat by Pulse Oximetry (%) 98 01/05/19 06:52 Labs: CBC, BMP 01/07/19 08:00 01/03/19 16:15 Delivery - Delivery Type of Anesthesia: Epidural Episiotomy/Laceration: None EBL (cc): 1,000 Delivery, Single - Stages of Labor Date 1st Stage Initiatied: 01/03/19 Time 1st Stage Initiated: 06:00 Date 2nd Stage Initiated: 01/04/19 Time 2nd Stage Initiated: 12:30 Date of Delivery: 01/04/19 Time of Delivery: 17:47 Time Placenta Delivered: 17:48 - Condition of Claims Adjuster/Asset Availability Leader Present: Yes Name: Luis Hastings Gender: Female Weight: 7 lb 3 oz Position: OP Total Hours ROM (Hrs/Mins): 9hrs/30mins - 1 Minute Total Score: 9 5 Minutes Total Score: 9 - Feeding Plan Initial Plan: Exclusive throughout hospitalization Discharge Summary Reason For Visit: INDUCTION OF LABOR Current Active Problems delivery delivered (Acute) Procedures: Principal: delivery Other Procedures: induction of labor Hospital Course: Patient was admitted for induction of labor She progressed to fully dilated and delivery was performed for failure to descend. POD # 1 patient ambulated, voiding, passing gas, tolerating oral intake and with adequate pain control. Noted to have mild asymptomatic anemia She fulfilled all criteria for discharge home Condition: Good - Instructions Diet, Activity, Other Instructions: Physical activity Resume your normal everyday activity as tolerated no heavy lifting or exercise until seen by your surgeon. You may walk unlimited nallely of and climb stairs. You may resume driving the car when you feel safe and comfortable behind the wheel. No sexual activity as instructed. Wound care If you have a bandage, leave it on, and keep dry for 48-72 hours. After that time discard the outer bandage. If they are tapes on the skin under the out of bandage leave them in place. They will peel off in the next 7 to 10 days. Do Not Peel them off. You may shower the day after surgery. If there are tapes present on the skin, you may shower over them. Diet There are no dietary restrictions. Eat healthy, high-fiber foods. Drink 6 to 8 glasses of liquid each day. This will assist in keeping your bowels are regular. Pain management You may take Tylenol or acetaminophen or Ibuprofen (for example, Motrin, Advil etc.) from my pain prescription medication is ordered should be taken as prescribed for moderate to severe pain. Call MD for any of the following: Severe pain not relieved by medication Fever of 101 or higher Excessive bleeding or drainage on dressing Inability to urinate Referrals: Chevy Delarosa MD [Staff Physician] - Disposition: HOME - Home Medications Comprehensive Discharge Medication List: Ambulatory Orders Pnv 112/Iron/Folic/Om3/Dha/Epa [Vitafol Gummies] 1 each PO DAILY 11/15/18
--- NOTE | 2019-01-08 06:56 | PN ---
Post Progress Note - Subjective Subjective: Patient without acute complaints. Reports tolerating oral intake without nausea or vomiting. Ambulating without dizziness. Denies fevers or chills. Pain well controlled with oral pain medication. without difficulty. Passing flatus. Post Day: 4 Type of Delivery: Primary C/S Vital Signs: Vital Signs Temperature 98.2 F 01/07/19 22:00 Pulse Rate 89 01/07/19 22:00 Respiratory Rate 18 01/07/19 22:00 Blood Pressure 123/75 01/07/19 22:00 O2 Sat by Pulse Oximetry (%) 98 01/05/19 06:52 Uterus: Yes: Fundus Firm, Fundus below umbilicus Incision: Yes: Dressing dry and intact Abdomen/GI: Yes: Abdomen soft, Tender (mild incisional), Passing flatus, Tolerating PO. No: Abdominal Distention Lochia: Yes: Serosa Lochia, amount: Small Extremities: Yes: Calves non-tender, Edema (+1) Activity: Ambulating - Labs Labs: CBC WBC 13.6 K/mm3 (4.0-10.0) H 01/07/19 08:00 RBC 3.40 M/mm3 (3.60-5.2) L 01/07/19 08:00 Hgb 8.7 GM/dL (10.7-15.3) L 01/07/19 08:00 Hct 26.3 % (32.4-45.2) L 01/07/19 08:00 MCV 77.4 fl (80-96) L 01/07/19 08:00 MCH 25.5 pg (25.7-33.7) L 01/07/19 08:00 MCHC 32.9 g/dl (32.0-36.0) 01/07/19 08:00 RDW 18.3 % (11.6-15.6) H 01/07/19 08:00 Plt Count 222 K/MM3 (134-434) D 01/07/19 08:00 MPV 8.6 fl (7.5-11.1) 01/07/19 08:00 Absolute Neuts (auto) 10.8 K/mm3 (1.5-8.0) H 01/07/19 08:00 Neutrophils % 79.5 % (42.8-82.8) 01/07/19 08:00 Lymphocytes % 13.0 % (8-40) D 01/07/19 08:00 Monocytes % 4.6 % (3.8-10.2) 01/07/19 08:00 Eosinophils % 2.7 % (0-4.5) D 01/07/19 08:00 Basophils % 0.2 % (0-2.0) 01/07/19 08:00 Nucleated RBC % 0 % (0-0) 01/07/19 08:00 Assessment/Plan 33 yo POD # 4 s/p 1 CD, afebrile, vital signs stable, doing well 1. Patient stable for discharge home today. 2. Patient encouraged to contact MD for: - Severe pain not controlled by oral pain medication - Fevers or chills - Nausea or vomiting, intolerance of oral intake - Incision redness, tenderness or discharge 3. Patient to follow up in office in 1-2 weeks for incision check, 4-6 weeks for visit
[2019-01-08] MEDS: ACETAMINOPHEN 650 MG/20.3 ML ORAL SOLUTION (CUPS) PO PRN (08:23)
[2019-01-08] MEDS: IBUPROFEN 100 MG/5 ML UNIT DOSE CUPS PO PRN (08:44)
[2019-01-08] MEDS: FERROUS SO4 325 MG TABLET (FP) PO SCH (10:03)
[2019-01-08] MEDS: ENOXAPARIN NA (PORCINE) 40 MG/0.4 ML DISP.SYRIN SQ SCH (10:03)
[2019-01-08] MEDS: PRENATAL VITAMINS W/ FOLIC ACID TABLET (FP) PO SCH (10:03)
[2019-01-08 10:50] VITALS: BP 124/74; PULSE 94; TEMP 98.4
--- NOTE | 2019-01-13 17:27 | PATH ---
Surgical Pathology Report Patient Name: REFUGIO APONTE [facility]. Rec. #: [id number] /Age/Gender: 1985 (Age: 33) / F Account: [id number] Location: [facility] OBS/PREVOCATIONAL/REHABILITATION COUNSELOR Taken: 01/04/2019 Received: 01/05/2019 Reported: 01/13/2019 Physicians: Chevy Delarosa M.D. Specimen(s) Received PLACENTA Clinical History , 38.4 weeks, bicornuate uterus Final Diagnosis PLACENTA, SECTION: 529 G THIRD TRIMESTER PLACENTA WITH TRIVASCULAR UMBILICAL CORD AND MILD ACUTE CHORIOAMNIONITIS. Electronically Signed Sarah Sultana M.D. Gross Description The specimen is received fresh labeled placenta and is a 529 gram, 20.5 x 16.0 x 3.3 cm. placenta with attached membranes and umbilical cord. The attached membranes are adame, translucent with focal opacities and insert marginally. The umbilical cord measures 10 cm. in length and averages 0.9 cm. in diameter. The cord inserts centrally. No true knots or strictures are identified. Cut surface of the umbilical cord reveals 3 vessels. The surface is mark-blue with minimal fibrin deposition and appropriate caliber vessels. The maternal surface is red-brown with focal defects. Sectioning reveals red-brown, spongy parenchyma. No lesions are identified. Nurse Practical sections are submitted in three cassettes as follows: 1- membrane rolls and umbilical cord; 2-3- full thickness sections of placenta. 01/12/2019 [facility]01/12/2019
== END 2019-01-08 13:06 | disposition home or self-care (01) | DRG 787 ==
LOC: JDEL 13:03 → JLDR 14:00 → J3W 01-04 20:55
PROVIDERS: ADMIT Obstetrics & Gynecology; ATTEND Obstetrics & Gynecology
PROC: 10D00Z1 Extraction of Products of Conception, Low, Open Approach (ICD-10-PCS; principal; 2019-01-04)
DX: O62.1 Secondary uterine inertia (principal); O14.03 Mild to moderate pre-eclampsia, third trimester; O99.013 Anemia complicating pregnancy, third trimester; D64.9 Anemia, unspecified; Z3A.38 38 weeks gestation of pregnancy; Z22.330 Carrier of Group B streptococcus; Z37.0 Single live birth
CPT/HCPCS: 36415; 36600; 59025; 80048; 82803; 85025; 85610; 85730; 86593; 86850; 86900; 86901; 88307-TC; 90715

== ENCOUNTER 2023-04-27 15:37 | Emergency (ER) | payer BC ==
[2023-04-27 15:58] VITALS: BP 122/68; PULSE 82; RESP 20; TEMP 98.9; BMI 26.6
== END 2023-04-27 17:16 | disposition home or self-care (01) ==
LOC: FER 15:37
DX: R19.7 Diarrhea, unspecified (principal); R10.9 Unspecified abdominal pain
CPT/HCPCS: 87070; 87651; 99283-25